=== PATIENT | male | born 1935 | race Caucasian/White ===

== ENCOUNTER → 2019-04-15 | Outpatient (CLI) | payer MEDICARE, BC ==
[~2019-04-15] MED LIST: ALBU90OI61 INH; ALLO300 PO; AMLO10 PO; ASPI81CH; ASPI81CH PO; ASPI81EC PO; ASPIRIN PO; Aspir 8181 MG; Aspir 8181 MG PO; CALCIUM CIT PO; CETI10 PO; CITRACAL D + H1 EACH PO; CITRACAL PO; CITRACAL-VIT D1 EAC1 PO; COLCHICINE0.6 MG PO; COLCRYS0.6 MG PO; EPIN.3I IM; FEBU40TA PO; FISH OIL PO; FOLI400 PO; HYDACE5 PO; LISI20 PO; LORA10 PO; LOSA50 PO; METO50ER PO; MOEHYD7.5; OXYACE5T PO; PRED20 PO; TRIHYD253B PO; [UNRECOGNIZED DRUG - OTHER]; [UNRECOGNIZED DRUG - OTHER] INJ; [UNRECOGNIZED DRUG - REMARK] IM
== END | disposition home or self-care (01) ==
LOC: PLD 08:00 → LAB SHORT 08:00
DX: D48.5 Neoplasm of uncertain behavior of skin (principal)
CPT/HCPCS: 88305

== ENCOUNTER 2019-07-17 08:19 | Day surgery (SDC) | payer MEDICARE, BC ==
[~2019-07-17] VITALS: Ht 172.7 cm; Wt 70.8 kg
[~2019-07-17 08:19] MED LIST changes: -AMLO10 PO
[2019-07-17] MEDS ORDERED: AMLO10 PO (09:01)
== END 2019-07-17 11:15 | disposition home or self-care (01) ==
LOC: ORSCSDS 08:19
PROVIDERS: Orthopaedic Surgery
PROC: 01N50ZZ Release Median Nerve, Open Approach (ICD-10-PCS; principal; 2019-07-17 09:30)
DX: G56.02 Carpal tunnel syndrome, left upper limb (principal); I10 Essential (primary) hypertension; Z79.899 Other long term (current) drug therapy; Z79.82 Long term (current) use of aspirin
CPT/HCPCS: J0690; J2704; J3010; J7120

== ENCOUNTER → 2019-10-17 | Outpatient (CLI) | payer MEDICARE, BC ==
[~2019-10-17] MED LIST changes: +AMLO10 PO
== END | disposition home or self-care (01) ==
LOC: LAB SHORT 08:39 → PLD 08:39
DX: D48.5 Neoplasm of uncertain behavior of skin (principal)
CPT/HCPCS: 88305

== ENCOUNTER → 2021-04-28 | Outpatient (CLI) | payer MEDICARE, BC | END | disposition home or self-care (01) | LOC: LAB 14:00 → LAB SHORT 14:00 | DX: D22.5 Melanocytic nevi of trunk (principal) | CPT/HCPCS: 88305 ==

== ENCOUNTER 2023-05-24 10:19 | Day surgery (SDC) | payer OTHER ==
[~2023-05-24] VITALS: Ht 172.7 cm; Wt 73.0 kg
[2023-05-24] VITALS (11 sets, daily range): BP systolic 116–155; BP diastolic 71–97
[~2023-05-24 10:19] MED LIST changes: -AMLO10 PO; +Amlodipine Bes2.5 MG PO
[2023-05-24] MEDS ORDERED: ALLO100 PO (10:42)
[2023-05-24 10:57] LABS: BASOPHILS ABSOLUTE AUTO 0.05 K/mm3 (0.00-0.23); BASOPHILS PERCENT AUTO 1 % (0-2); EOSINOPHILS ABSOLUTE AUTO 0.12 K/mm3 (0.00-0.68); EOSINOPHILS PERCENT AUTO 2 % (0-6); Hematocrit 49.8 % (37.0-53.0); Hemoglobin 16.9 g/dL (13.5-17.5); IMMATURE GRAN ABSOLUTE AUTO 0.01 K/mm3 (0.00-0.10); IMMATURE GRAN PERCENT AUTO 0 % (0-1); LYMPHOCYTES ABSOLUTE AUTO 1.03 K/mm3 (0.84-5.20); LYMPHOCYTES PERCENT AUTO 16 % (21-46); MONOCYTES PERCENT AUTO 9 % (4-13); Mean Corpuscular HGB 31.6 pg (26.0-34.0); Mean Corpuscular HGB Conc 33.9 g/dL (31.5-36.5); Mean Corpuscular Volume 93 fL (80-100); Mean Platelet Volume 9.7 fL (9.1-12.4); NEUTROPHILS ABSOLUTE AUTO 4.74 K/mm3 (1.96-9.15); NEUTROPHILS PERCENT AUTO 72 % (41-73); Platelet Count 266 K/mm3 (150-400); RDW Coefficient Variation 12.1 % (11.7-14.2); RDW Standard Deviation 41.9 fL (35.1-46.3); Red Blood Cell Count 5.35 M/mm3 (4.30-5.90); White Blood Cell Count 6.55 K/mm3 (4.00-11.30)
[2023-05-24 11:21] LABS: Bun/Creatinine Ratio 29.4 (12.0-20.0); Calcium, Blood 8.9 mg/dL (8.5-10.1); Creatinine, Blood 0.85 mg/dL (0.60-1.20)
[2023-05-24 11:23] LABS: Prothrombin Time Results 10.5 Sec (9.7-11.5)
--- NOTE | 2023-05-24 16:45 | NUR ---
ADMIT TO PCU AT 1547. [facility] WITH NEW PACER TO LEFT CHEST WALL. ALERT AND ORIENTED X4. HISTORY OF CARPAL TUNNEL. IND AT BASELINE. PACER PRECAUTIONS REVIEWED AND WRITTEN INSTRUCTIONS GIVEN TO PATIENT. SHOULDER SLING IN PLACE WITH ICE PACK OVER PACER INCISION. ON ROOM AIR SATING ABOVE 95%. LUNGS SOUNDING CLEAR. DENIES SOB/COUGH. CHEST XRAY TAKEN POST PACER. TELE SHOWING A PACED WITH UNDERLYING SR. HR 70'S. BP STABLE. DENIES CHEST PAIN/PRESSURE. PACER DRESSING C/D/I. BOWEL TONES PRESENT. USING URINAL AT BEDSIDE. EATING WNL. DENIES ABDOMINAL PAIN/NAUSEA. SKIN OVERALL C/D/I. FRAGILE WITH SOME SCATTERED BRUISING. AT BEDSIDE AND UPDATED ON PLAN OF CARE. POST OP VITALS IN PROGRESS. SALINE LOCKED. ORIENTED TO ROOM/UNIT. FIRE SAFETY AND IGNITION SOURCES REVIEWED. PATIENT DENIES USING TOBACCO PRODUCTS AND HAVING ANY IGNITION SOURCES. CALL LIGHT IN REACH.
--- NOTE | 2023-05-24 18:02 | NUR ---
SHIFT SUMMARY: NO ACUTE CHANGES. POST OP VITALS STABLE AND IN PROGRESS. PACER SITE REMAINS C/D/I. NO SIGNS OF BLEEDING. PATIENT COMPLAINS OF 3/10 PAIN AT SITE, MEDICATED PER EMAR WITH TYLENOL. ICE PACK REMAINS IN PLACE. POST PACER EDUCATION AND PRECAUTIONS REVIEWED. CHEST XRAY COMPLETED. ARM SLING IN PLACE. PATIENT EATING AND VOIDING WNL. WILL CONTINUE TO MONTITOR AND REPORT OFF TO NOC SHIFT. CALL LIGHT IN REACH.
[2023-05-25 04:15] VITALS: BP 141/83
--- NOTE | 2023-05-25 06:57 | NUR ---
SHIFT SUMMARY PATIENT ALERT AND ORIENTED X4. REQUIRES MINIMAL ASSIST TO GET OUT OF BED, AMBULATES INDEPENDENTLY. PATIENT MEDICATED PER EMAR FOR PAIN. DRESSING OVER PACER SITE REMAINS CLEAN/DRY/INTACT. PACER INTERROGATION COMPLETED. VITAL SIGNS STABLE WITH PATIENT ON ROOM AIR. NO ACUTE ISSUES NOTED OVERNIGHT. PATIENT EDUCATED ON FIRE SAFETY AND IGNITION RISK IN THE HOSPITAL. WILL CONTINUE TO MONITOR. CALL LIGHT WITHIN REACH.
[2023-05-25 07:38] VITALS: BP 137/85
--- NOTE | 2023-05-25 07:46 | NUR ---
post pacer ekg completed
[2023-05-25 10:32] VITALS: BP 136/82
--- NOTE | 2023-05-25 10:43 | NUR ---
AM NOTE: PATIENT ALERT AND ORIENTED X4. PERRLA, WEARING GLASSES. DENIES NUMBNESS/TINGLING. HISTORY OF CARPAL TUNNEL. ON ROOM AIR SATING ABOVE 95%. DENIES SOB/COUGH. LUNGS SOUNDING CLEAR. TELE SHOWING A PACED WITH HR 70-100'S. EKG DONE THIS AM WELL PACER INTERROGATION. DR. LANG BY, PLAN TO START PO METOPROLOL. 1ST DOSE GIVEN. PATIENT TO WAIT ONE HOUR AFTER PO METORPOLOL DOSE PRIOR TO DISCHARGING. PACER SITE WNL WITH SCANT BRUISING BELOW PACER DRESSING. COMPLAINS OF 2/10 SORENESS EARLY THIS AM, MEDICATED WITH TYLENOL. DRESSING C/D/I. PACER INSTRUCTIONS/HANDOUT REVIEWED WITH PATIENT. PATIENT ARM REMAINS IN SLING. FOLLOW UP APPOINTMENT WITH CARDIOLOGY DR. BARTON SCHEDULED FOR . PATIENT SITTING IN CHAIR AT THIS TIME. EATING AND VOIDING WNL. BOWEL TONES PRESENT. AT BEDSIDE AND UPDATED ON PLAN OF CARE. PATIENT EDUCATED ON FIRE RISK AND IGNITION SOURCES. CALL LIGHT IN REACH.
[2023-05-25 11:26] VITALS: BP 129/80
[2023-05-25] MEDS ORDERED: TOPROL XL25 MG PO (12:06)
--- NOTE | 2023-05-25 12:42 | NUR ---
DISCHARGE: NO ACUTE CHANGES. BP STABLE WITH PO METPROLOL. PATIENT OKAY TO DISCHARGE ONE HOUR POST PO METORPOLOL PER DR. LANG. DISCHARGE EDUCATION REVIEWED WITH PATIENT AND . POST PACER SHOULDER PRECAUTIONS REVIEWED IN DETAIL. PATIENT SENT HOME WITH SLING AND ICE PACK. FOLLOW UP APPOINTMENTS REVIEWED WELL. PACER WOUND CHECK, [facility] APPOINTMENT, PCP FOLLOW UP AND DR. FARRELL FOLLOW UP. DR. FARRELL OFFICE TO CALL PATIENT TO SET UP NEXT AVAILBLE APPOINTMENT. PATIENT SENT HOME WITH PACEMAKER [facility] ID CARD AND PACER MANUAL. MEDICATION FAXED TO [facility]. EDUCATION REGARDING METOPROLOL SUCCINATE REVIEWED IN DETAIL. PATIENT AND ABLE TO VERBALIZE BACK TO THIS RN. PATIENT LEFT UNIT VIA WHEELCHAIR WITH ALL PERSONAL BELONGINGS.
== END 2023-05-25 12:37 | disposition home or self-care (01) ==
LOC: MHTC 10:19 → PCU 15:25 → MHTC 05-25 12:37
PROVIDERS: Internal Medicine Cardiovascular Disease
DX: R00.1 Bradycardia, unspecified (principal); I10 Essential (primary) hypertension; E78.5 Hyperlipidemia, unspecified; Z88.8 Allergy status to other drugs, medicaments and biological substances; Z79.899 Other long term (current) drug therapy
CPT/HCPCS: 33208; 71045; 71046; 80048; 85025; 85610; 93005; 93010; 99152; 99153; A9270; C1785; C1894; C1898; J0690; J1644; J2250; J3010; J7040; Q9967

== ENCOUNTER 2024-01-01 11:24 | Inpatient (IN) | payer OTHER ==
[~2024-01-01] VITALS: Ht 172.7 cm; Wt 69.8 kg
[~2024-01-01 11:24] MED LIST changes: +ALLO100 PO; +TOPROL XL25 MG PO
[2024-01-01] MEDS ORDERED: FURO20 PO (11:41)
[2024-01-01] MEDS ORDERED: METO50ER PO (11:41)
[2024-01-01] MEDS ORDERED: ELIQUIS2.5 MG PO (11:42)
[2024-01-01] MEDS ORDERED: CALCIUM CIT 311 EAC7 PO (11:43)
[2024-01-01] MEDS ORDERED: VITAMIN B121000 MCG PO (11:43)
[2024-01-01] MEDS ORDERED: ZOLEDRONIC ACID414 IV (11:43)
[2024-01-01] MEDS ORDERED: VITAMIN D325 MC3 PO (11:43)
[2024-01-01] MEDS ORDERED: Nitroglycerin 0.4 MG SUBL SL PRN (11:45)
[2024-01-01 11:55] LABS: BASOPHILS ABSOLUTE AUTO 0.05 K/mm3 (0.00-0.23); BASOPHILS PERCENT AUTO 1 % (0-2); EOSINOPHILS ABSOLUTE AUTO 0.04 K/mm3 (0.00-0.68); EOSINOPHILS PERCENT AUTO 0 % (0-6); Hematocrit 42.6 % (37.0-53.0); Hemoglobin 14.6 g/dL (13.5-17.5); IMMATURE GRAN ABSOLUTE AUTO 0.04 K/mm3 (0.00-0.10); IMMATURE GRAN PERCENT AUTO 0 % (0-1); LYMPHOCYTES PERCENT AUTO 12 % (21-46); MONOCYTES ABSOLUTE AUTO 1.05 K/mm3 (0.16-1.47); MONOCYTES PERCENT AUTO 10 % (4-13); Mean Corpuscular HGB 32.3 pg (26.0-34.0); Mean Corpuscular HGB Conc 34.3 g/dL (31.5-36.5); Mean Corpuscular Volume 94 fL (80-100); Mean Platelet Volume 10.4 fL (9.1-12.4); NEUTROPHILS ABSOLUTE AUTO 7.75 K/mm3 (1.96-9.15); NEUTROPHILS PERCENT AUTO 77 % (41-73); Platelet Count 189 K/mm3 (150-400); RDW Coefficient Variation 13.2 % (11.7-14.2); RDW Standard Deviation 45.5 fL (35.1-46.3); Red Blood Cell Count 4.52 M/mm3 (4.30-5.90); White Blood Cell Count 10.13 K/mm3 (4.00-11.30)
[2024-01-01 12:16] LABS: Albumin, Blood 3.7 g/dL (3.4-5.0); Albumin/Globulin Ratio 1.1 (0.8-1.8); Bilirubin, Total 1.6 mg/dL (0.1-1.0); Bun/Creatinine Ratio 24.8 (12.0-20.0); Calcium, Blood 9.6 mg/dL (8.5-10.1); Creatinine, Blood 0.81 mg/dL (0.60-1.20); Globulin, Blood 3.4 g/dL (2.2-4.0); Total Protein, Blood 7.1 g/dL (6.4-8.2)
[2024-01-01] MEDS ORDERED: Ondansetron 4 MG TAB PO PRN (13:35)
[2024-01-01] MEDS ORDERED: Acetaminophen 325 MG TABLET PO PRN (13:35)
[2024-01-01] MEDS ORDERED: Magnesium Hydroxide Conc 10 ML UDC PO PRN (13:35)
[2024-01-01] MEDS ORDERED: FLU VACC QS2023-24(6MOS UP)/PF 60 MCG/0.5 ML SYRINGE IM SCH (13:35)
[2024-01-01] MEDS ORDERED: ZOLEDRONIC ACID IV SCH (15:50)
[2024-01-01] MEDS ORDERED: Aspirin 325 MG Tab PO SCH (16:00)
[2024-01-01] MEDS ORDERED: Omeprazole 20 MG CapCR PO SCH (16:00)
[2024-01-01] MEDS ORDERED: Colchicine 0.6 MG TAB PO ONE (16:00)
[2024-01-01 16:35] VITALS: BP 108/77
--- NOTE | 2024-01-01 17:14 | NUR ---
ADMISSION NOTE: Received pt from ED at 1730 A&Ox4. Denies pain at this time. VSS. Gen weakness noted. Pt states from laying to long today. Resp even nonlabored. Lung sounds clear, diminished right lobe on RA. Oriented to room and call light. Encouraged pt to call for ast when needing to get up to bathroom. at bedside. Pain and safety maintained. Will continue to monitor.
[2024-01-01] MEDS ORDERED: Ibuprofen 600 MG Tab PO SCH (17:30)
[2024-01-01] MEDS ORDERED: Cyanocobalamin 500 MCG Tab PO SCH (18:00)
[2024-01-01 20:02] VITALS: BP 107/56
[2024-01-01] MEDS ORDERED: Docusate Sodium 100 MG Cap PO SCH (21:00)
[2024-01-01] MEDS ORDERED: Losartan Potassium 50 MG Tab PO SCH (21:00)
[2024-01-01] MEDS ORDERED: Apixaban 5 MG Tab PO SCH (21:00)
[2024-01-02 03:37] VITALS: BP 107/68
[2024-01-02 05:21] LABS: BASOPHILS ABSOLUTE AUTO 0.02 K/mm3 (0.00-0.23); BASOPHILS PERCENT AUTO 0 % (0-2); EOSINOPHILS ABSOLUTE AUTO 0.18 K/mm3 (0.00-0.68); EOSINOPHILS PERCENT AUTO 2 % (0-6); Hematocrit 37.9 % (37.0-53.0); IMMATURE GRAN ABSOLUTE AUTO 0.03 K/mm3 (0.00-0.10); IMMATURE GRAN PERCENT AUTO 0 % (0-1); LYMPHOCYTES ABSOLUTE AUTO 1.01 K/mm3 (0.84-5.20); LYMPHOCYTES PERCENT AUTO 13 % (21-46); MONOCYTES ABSOLUTE AUTO 1.12 K/mm3 (0.16-1.47); MONOCYTES PERCENT AUTO 14 % (4-13); Mean Corpuscular HGB Conc 34.3 g/dL (31.5-36.5); Mean Corpuscular Volume 93 fL (80-100); Mean Platelet Volume 10.4 fL (9.1-12.4); NEUTROPHILS ABSOLUTE AUTO 5.51 K/mm3 (1.96-9.15); NEUTROPHILS PERCENT AUTO 70 % (41-73); Platelet Count 154 K/mm3 (150-400); RDW Coefficient Variation 13.2 % (11.7-14.2); RDW Standard Deviation 44.9 fL (35.1-46.3); Red Blood Cell Count 4.06 M/mm3 (4.30-5.90); White Blood Cell Count 7.87 K/mm3 (4.00-11.30)
[2024-01-02 05:34] LABS: Albumin, Blood 2.9 g/dL (3.4-5.0); Bilirubin, Total 2.1 mg/dL (0.1-1.0); Bun/Creatinine Ratio 26.1 (12.0-20.0); C-REACTIVE PROTEIN, EXT RANGE 13.3 mg/dL (0.000-0.300); Calcium, Blood 8.6 mg/dL (8.5-10.1); Creatinine, Blood 0.88 mg/dL (0.60-1.20); Potassium, Blood 3.8 mmol/L (3.5-5.5); Total Protein, Blood 5.9 g/dL (6.4-8.2)
[2024-01-02 07:21] VITALS: BP 125/72
--- NOTE | 2024-01-02 08:33 | NUR ---
SHIFT SUMMARY TALIB IS A&OX4, VSS ON RA. AV-PACED @ 62 PER TELEMETRY. DENIES PAIN. NO ACUTE CHANGES THIS SHIFT. TOLERATING A REGULAR DIET. X1 ASSIST WITH FWW TO BR. VOIDING IN TOILET, NO BM THIS SHIFT. PT STATES HE IS GOING HOME TODAY. HE IS FEELING SO MUCH BETTER. BED IN LOWEST POSITION, CALL LIGHT WITHIN REACH.
[2024-01-02] MEDS ORDERED: Calcium Citrate 315 MG/Vitamin D 250 IU Tab PO SCH (09:00)
[2024-01-02] MEDS ORDERED: Metoprolol Succinate 50 MG TABCR PO SCH (09:00)
[2024-01-02] MEDS ORDERED: Allopurinol 100 MG Tab PO SCH (09:00)
[2024-01-02] MEDS ORDERED: Furosemide 20 MG Tab PO SCH (09:00)
[2024-01-02] MEDS ORDERED: Cholecalciferol 1000 Unit Tablet (=25MCG) PO SCH (09:00)
[2024-01-02] MEDS ORDERED: Colchicine 0.6 MG TAB PO SCH (09:00)
[2024-01-02] MEDS ORDERED: COLCHICINE0.6 MG PO (11:09)
[2024-01-02] MEDS ORDERED: OMEP20ER PO (11:10)
[2024-01-02] MEDS ORDERED: IBUP600 PO (11:10)
--- NOTE | 2024-01-02 12:31 | NUR ---
PT DISCHARGED THE PT VERBALIZED UNDERSTANDING OF THE DC INSTRUCTIONS. THE PTS PRESCRIPTION FAXED TO [facility] REQUESTED. THE PT WAS TRANSFERED VIA WHEELCHAIR ACCOMPANIED BY THE FOREIGN POLICY OFFICER AND HIS . PT HAD A FOLLOW UP APPOINTMENT SCHEDULED PRIOR TO DC
== END 2024-01-02 11:26 | disposition home or self-care (01) | DRG 315 ==
LOC: ER 11:24 → MEDS 13:31 → ENPENDDIS 01-02 09:52 → MEDS 01-02 11:26
PROVIDERS: Student in an Organized Health Care Education/Training Program; ADMIT Family Medicine
DX: I30.9 Acute pericarditis, unspecified (principal); I50.32 Chronic diastolic (congestive) heart failure; I11.0 Hypertensive heart disease with heart failure; I49.5 Sick sinus syndrome; I48.0 Paroxysmal atrial fibrillation; I27.20 Pulmonary hypertension, unspecified; M10.9 Gout, unspecified; M81.0 Age-related osteoporosis without current pathological fracture; Z88.8 Allergy status to other drugs, medicaments and biological substances; Z95.0 Presence of cardiac pacemaker; Z96.642 Presence of left artificial hip joint; Z79.01 Long term (current) use of anticoagulants
CPT/HCPCS: 36415; 71045; 80053; 83690; 84484; 85025; 85379; 85651; 86140; 93005; 93010; 99285-25; A9270

== ENCOUNTER 2024-12-12 03:35 | Emergency (ER) | payer OTHER ==
[~2024-12-12] VITALS: Ht 172.7 cm; Wt 68.0 kg
[~2024-12-12 03:35] MED LIST changes: +CALCIUM CIT 311 EAC7 PO; +ELIQUIS2.5 MG PO; +ELIQUIS5 M3 PO; +FURO20 PO; +IBUP600 PO; +JARDIANCE10 MG PO; +OMEP20ER PO; +Prednisone2.5 MG PO; +SULFAMETHOXAZO1 EAC1 PO; +TAMSULOSIN HCL0.4 M1 PO; +VITAMIN B121000 MCG PO; +VITAMIN D325 MC3 PO; +ZOLEDRONIC ACID414 IV
[2024-12-12] MEDS ORDERED: Oxymetazoline 0.05% Nasal Relief Spray 15mL BTL ONE (05:05)
[2024-12-12 05:08] LABS: BASOPHILS ABSOLUTE AUTO 0.04 K/mm3 (0.00-0.23); BASOPHILS PERCENT AUTO 1 % (0-2); EOSINOPHILS ABSOLUTE AUTO 0.25 K/mm3 (0.00-0.68); EOSINOPHILS PERCENT AUTO 4 % (0-6); Hemoglobin 15.8 g/dL (13.5-17.5); IMMATURE GRAN ABSOLUTE AUTO 0.02 K/mm3 (0.00-0.10); IMMATURE GRAN PERCENT AUTO 0 % (0-1); LYMPHOCYTES ABSOLUTE AUTO 0.71 K/mm3 (0.84-5.20); LYMPHOCYTES PERCENT AUTO 12 % (21-46); MONOCYTES ABSOLUTE AUTO 0.65 K/mm3 (0.16-1.47); MONOCYTES PERCENT AUTO 11 % (4-13); Mean Corpuscular HGB 31.7 pg (26.0-34.0); Mean Corpuscular HGB Conc 34.3 g/dL (31.5-36.5); Mean Corpuscular Volume 92 fL (80-100); Mean Platelet Volume 10.4 fL (9.1-12.4); NEUTROPHILS ABSOLUTE AUTO 4.05 K/mm3 (1.96-9.15); NEUTROPHILS PERCENT AUTO 71 % (41-73); Platelet Count 203 K/mm3 (150-400); RDW Standard Deviation 50.9 fL (35.1-46.3); Red Blood Cell Count 4.99 M/mm3 (4.30-5.90); White Blood Cell Count 5.72 K/mm3 (4.00-11.30)
[2024-12-12] MEDS ORDERED: AFRIN15 M6 (05:08)
[2024-12-12 05:15] VITALS: BP 131/85
[2024-12-12 05:32] LABS: Albumin, Blood 3.5 g/dL (3.4-5.0); Bilirubin, Total 1.5 mg/dL (0.1-1.0); Bun/Creatinine Ratio 23.9 (12.0-20.0); Creatinine, Blood 0.84 mg/dL (0.60-1.20); Globulin, Blood 3.4 g/dL (2.2-4.0); Potassium, Blood 3.6 mmol/L (3.5-5.5); Total Protein, Blood 6.9 g/dL (6.4-8.2)
== END 2024-12-12 05:54 | disposition home or self-care (01) ==
LOC: ER 03:35
PROVIDERS: Emergency Medicine
DX: J31.0 Chronic rhinitis (principal); Z79.52 Long term (current) use of systemic steroids; Z79.899 Other long term (current) drug therapy; I48.91 Unspecified atrial fibrillation; Z91.038 Other insect allergy status; Z88.8 Allergy status to other drugs, medicaments and biological substances
CPT/HCPCS: 80053; 85025; 93005; 93010; 99283-25; A9270